=== PATIENT | male | born 1940 | race Caucasian/White ===

== ENCOUNTER → 2018-02-08 | Outpatient (CLI) | payer MEDICARE ==
[~2018-02-08] VITALS: Ht 175.3 cm; Wt 77.1 kg
[~2018-02-08] MED LIST: AEC81 PO; ALLO100T PO; ATOR10TA69 PO; CITA10TA7 PO; GABA300S PO; LABE100T5 PO; LOSA50TA37 PO; REGADENOSON 0.4 MG/5 ML PF SYG IVP SCH; TERA5CAP4 PO
== END | disposition home or self-care (01) ==
LOC: SHCH 09:07
PROVIDERS: ATTEND Internal Medicine Cardiovascular Disease
DX: Z01.810 Encounter for preprocedural cardiovascular examination (principal); I25.10 Atherosclerotic heart disease of native coronary artery without angina pectoris
CPT/HCPCS: 78452; 93017; 96374; A9500 ×2; J2785

== ENCOUNTER → 2020-12-18 | Outpatient (CLI) | payer MEDICARE ==
[~2020-12-18] MED LIST changes: -ALLO100T PO; +ALLO300T2 PO; +CLOR7.5T5 PO; -GABA300S PO; +GABA600T10 PO; +ISOS30TA92 PO; -LOSA50TA37 PO; +LOSA50TA64 PO; -REGADENOSON 0.4 MG/5 ML PF SYG IVP SCH
== END | disposition home or self-care (01) ==
LOC: RAH 10:40
PROVIDERS: ATTEND Internal Medicine
DX: Z01.818 Encounter for other preprocedural examination (principal); I10 Essential (primary) hypertension
CPT/HCPCS: 71046